=== PATIENT | male | born 1950 | race African-American/Black ===

== ENCOUNTER 2021-11-05 06:22 | Emergency (ER) | payer MEDICARE ==
[~2021-11-05] VITALS: Ht 182.9 cm; Wt 65.0 kg
[2021-11-05 08:08] LABS: BASOPHILS % 0.3 % (0.0-2.0); EOSINOPHILS % 0.7 % (0.0-5.0); HEMATOCRIT. 37.9 % (42.0-52.0); LYMPHOCYTES % 19.6 % (20.0-50.0); MEAN CORPUSCULAR HEMOGLOBIN 23.1 pg (28.0-32.0); MEAN CORPUSCULAR VOLUME 72.8 fL (80.0-94.0); MEAN PLATELET VOLUME 8.4 fl (7.4-10.4); MONOCYTES % 6.4 % (2.0-8.0); PLATELET 190 x1000/uL (130-400); RED CELL DISTRIBUTION WIDTH 15.7 % (11.6-14.6)
[2021-11-05 08:17] LABS: PROTHROMBIN TIME 10.8 sec (9.6-11.0)
[2021-11-05 08:21] LABS: CHLORIDE 106 mEq/L (98-107)
[2021-11-05] MEDS ORDERED: IOHEXOL-300 50 ML BOTTLE IV ONE (11:43)
[2021-11-05 15:15] VITALS: BP 131/77
== END 2021-11-05 15:22 | disposition home or self-care (01) ==
LOC: ER 06:22
DX: Z43.1 Encounter for attention to gastrostomy (principal); D64.9 Anemia, unspecified; R13.10 Dysphagia, unspecified; Z20.822 Contact with and (suspected) exposure to COVID-19
CPT/HCPCS: 36415; 49450; 80053; 85025; 85610; 87426; 99284; C9803; Q9967

== ENCOUNTER 2021-11-08 10:14 | Inpatient (IN) | payer MEDICARE ==
[~2021-11-08] VITALS: Ht 170.2 cm; Wt 62.0 kg
[2021-11-08 11:21] LABS: BASOPHILS % 0.2 % (0.0-2.0); EOSINOPHILS % 0.8 % (0.0-5.0); HEMATOCRIT. 35.9 % (42.0-52.0); HEMOGLOBIN. 11.4 g/dL (14.0-18.0); LYMPHOCYTES % 18.7 % (20.0-50.0); MEAN CORPUSCULAR HEMOGLOBIN 23.2 pg (28.0-32.0); MEAN CORPUSCULAR VOLUME 73.3 fL (80.0-94.0); MEAN PLATELET VOLUME 8.2 fl (7.4-10.4); MONOCYTES % 9.6 % (2.0-8.0); NEUTROPHILS % 70.7 % (40.0-76.0); PLATELET 175 x1000/uL (130-400); RED CELL DISTRIBUTION WIDTH 15.9 % (11.6-14.6)
[2021-11-08 11:30] LABS: CHLORIDE 104 mEq/L (98-107)
[2021-11-08] MEDS ORDERED: MAGNESIUM/ALUMINUM HYDROXIDE/SIMETHICONE 30ML UDC PO PRN (16:30)
[2021-11-08] MEDS ORDERED: ACETAMINOPHEN 325MG TABLET PO PRN ×2 (16:30)
[2021-11-08] MEDS ORDERED: HYDROCODONE/ACETAMINOPHEN 5/325MG TABLET PO PRN (16:30)
[2021-11-08] MEDS ORDERED: CLONIDINE 0.1MG TABLET PO PRN (16:30)
[2021-11-08] MEDS ORDERED: GUAIFENESIN 200MG/10ML SUGAR FREE UDC PO PRN (16:30)
[2021-11-08] MEDS ORDERED: ONDANSETRON HCL 4MG/2ML INJ IV PRN (16:30)
[2021-11-08] MEDS ORDERED: IPRATROPIUM/ALBUTEROL 0.5-3(2.5)MG/3ML NEB NEB PRN (16:30)
[2021-11-08] MEDS ORDERED: ENOXAPARIN 40MG/0.4ML SYR SUBCUT SCH (17:00)
[2021-11-08] MEDS ORDERED: HYDRALAZINE 20MG/ML VIAL IV PRN (21:30)
[2021-11-08] MEDS ORDERED: NALOXONE HCL 0.4MG/ML VIAL IV PRN (21:30)
[2021-11-08 22:05] VITALS: BP 120/74
[2021-11-09] MEDS: DEXT 5%/0.45% NACL 1000ML 1,000 ML IV SCH ×2 (03:41→18:08)
[2021-11-09] MEDS ORDERED: CEFAZOLIN 1000MG PREMIX 50 ML IV NR (06:00)
[2021-11-09 06:51] LABS: BASOPHILS % 0.1 % (0.0-2.0); HEMATOCRIT. 35.2 % (42.0-52.0); HEMOGLOBIN. 11.3 g/dL (14.0-18.0); LYMPHOCYTES % 7.5 % (20.0-50.0); MEAN CORPUSCULAR HEMOGLOBIN 23.2 pg (28.0-32.0); MEAN PLATELET VOLUME 9.1 fl (7.4-10.4); MONOCYTES % 9.5 % (2.0-8.0); NEUTROPHILS % 82.9 % (40.0-76.0); PLATELET 214 x1000/uL (130-400); RED BLOOD CELL COUNT 4.89 mill/uL (4.7-6.1); RED CELL DISTRIBUTION WIDTH 15.5 % (11.6-14.6)
[2021-11-09 06:58] LABS: CHLORIDE 105 mEq/L (98-107)
[2021-11-09 07:08] LABS: PROTHROMBIN TIME 10.3 sec (9.6-11.0)
[2021-11-09 07:13] LABS: PHOSPHORUS 2.8 mg/dL (2.5-4.9); TOTAL IRON BINDING CAPACITY 295 ug/dL (250-450)
[2021-11-09 07:40] LABS: VITAMIN B12 SERUM 588 pg/mL (211-911)
[2021-11-09 07:44] LABS: FOLIC ACID (FOLATE) SERUM > 20.00 ng/mL (>5.38)
[2021-11-09 08:00] VITALS: BP 148/85
[2021-11-09 12:00] VITALS: BP 138/76
[2021-11-09 12:58] LABS: FERRITIN 109 ng/mL (22-322)
[2021-11-09] MEDS ORDERED: PROPOFOL 200MG/20ML VIAL IV ONE (15:28)
[2021-11-09] MEDS ORDERED: MIDAZOLAM HCL 2 MG/2 ML VIAL ONE (15:28)
[2021-11-09 18:12] VITALS: BP 107/57
[2021-11-09 20:00] VITALS: BP 107/55
[2021-11-09] MEDS ORDERED: HYDRALAZINE 10 MG in SODIUM CHLORIDE 0.9% 49.5 ML IV PRN (22:15)
[2021-11-10] VITALS: BP 108/54
[2021-11-10] MEDS: DEXT 5%/0.45% NACL 1000ML 1,000 ML IV SCH ×3 (03:50→17:47)
[2021-11-10 04:00] VITALS: BP 124/80
[2021-11-10] MEDS: METOCLOPRAMIDE HCL 10MG/2ML VIAL IV SCH ×4 (05:42→23:20)
[2021-11-10 08:00] VITALS: BP 135/78
[2021-11-10 12:00] VITALS: BP 155/90
[2021-11-10 16:00] VITALS: BP 140/80
[2021-11-10 20:00] VITALS: BP 135/77
[2021-11-11] VITALS: BP 121/70
[2021-11-11 04:00] VITALS: BP 130/79
[2021-11-11] MEDS: DEXT 5%/0.45% NACL 1000ML 1,000 ML IV SCH ×2 (05:27→13:11)
[2021-11-11] MEDS: METOCLOPRAMIDE HCL 10MG/2ML VIAL IV SCH ×3 (08:42→19:05)
[2021-11-11] MEDS ORDERED: THIAMINE HCL 100MG TABLET PO SCH (09:00)
[2021-11-11 16:00] VITALS: BP 119/74
[2021-11-11 17:02] VITALS: BP 125/72
[2021-11-11 20:00] VITALS: BP 138/62
== END 2021-11-11 22:15 | DRG 394 ==
LOC: ER 10:26 → 6EST 13:12 → SUPCPDRO 13:51 → CANRESERV 14:17 → ENRESERV 14:17
PROVIDERS: ADMIT Internal Medicine; ATTEND Internal Medicine
PROC: 0DB78ZX Excision of Stomach, Pylorus, Via Natural or Artificial Opening Endoscopic, Diagnostic (ICD-10-PCS; principal; 2021-11-10)
PROC: 0DH63UZ Insertion of Feeding Device into Stomach, Percutaneous Approach (ICD-10-PCS; 2021-11-10)
DX: Z43.1 Encounter for attention to gastrostomy (principal); E44.0 Moderate protein-calorie malnutrition; K29.70 Gastritis, unspecified, without bleeding; D50.9 Iron deficiency anemia, unspecified; E11.9 Type 2 diabetes mellitus without complications; F03.90 Unspecified dementia, unspecified severity, without behavioral disturbance, psychotic disturbance, mood disturbance, and anxiety; R13.12 Dysphagia, oropharyngeal phase; Z20.822 Contact with and (suspected) exposure to COVID-19; F10.11 Alcohol abuse, in remission; Z87.891 Personal history of nicotine dependence; I10 Essential (primary) hypertension; R62.7 Adult failure to thrive; Z68.21 Body mass index [BMI] 21.0-21.9, adult
CPT/HCPCS: 36415; 49450; 76700; 80053; 82607; 82728; 82746; 82962; 83036; 83540; 83550; 83735; 84100; 84443; 85025; 87426; 88305; 88312; 88313; 99284; 99285; C9803; J0690; J2250; J2704; J2765; Q9967